=== PATIENT | male | born 1975 | race Two or more races ===

== ENCOUNTER 2024-01-07 18:17 | Emergency (ER) | payer MEDICAID, SELFPAY ==
--- NOTE | 2024-01-07 18:19 | PC.NURSE ---
WALKED OUT WHILE NURSE ATTEMPTING TO TRIAGE PT
== END 2024-01-07 19:29 | disposition left against medical advice (07) ==
DX: Z53.21 Procedure and treatment not carried out due to patient leaving prior to being seen by health care provider (principal)

== ENCOUNTER 2024-11-04 19:20 | Emergency (ER) | payer MEDICAID, SELFPAY ==
[2024-11-04 19:48] VITALS: BP 180/98; PULSE 93; RESP 18; TEMP 36.8; O2SAT 96; BMI 22.7
--- NOTE | 2024-11-04 19:54 | XR_ITS ---
Examination: Humerus 2 views left Technique: Humerus, AP lateral 2 views Date and time of exam: November 04, 20242000 hours INDICATIONS: Patient fell today with injury to the arm, arm pain FINDINGS: Old appearing bony density at the lateral humeral condyle No shoulder dislocation No acute fracture IMPRESSION: No acute fracture
--- NOTE | 2024-11-04 19:54 | EKG_ITS ---
[facility] (Formerly [facility])[3] Test Date: 2024-11-04 Pat Name: CYNDEE LENZ Department: Room: - Gender: Male Service Desk Analyst: : 1975 Requested By: Christos Mesa Order Number: [id number] Reading MD: Christos Mesa Measurements Intervals [place] Rate: 97 P: 49 IN: 137 QRS: 11 QRSD: 89 T: 56 QT: 357 QTc: 454 Interpretive Statements SINUS RHYTHM Compared to ECG 02/03/2022 02:18:15 Sinus tachycardia no longer present Atrial abnormality no longer present Left ventricular hypertrophy no longer present ST (T wave) deviation no longer present /store/S0/[id number].pdf
--- NOTE | 2024-11-04 19:54 | XR_ITS ---
Examination: PA chest single view TECHNIQUE: Upright PA chest single view Date and time: November 04, 2024 2001 hours INDICATIONS: Chest pain and shortness of breath today. FINDINGS: Normal heart size Lungs are clear. The osseous structures are intact. IMPRESSION: No active disease.
--- NOTE | 2024-11-04 19:55 | PD.EDRME ---
Rapid Medical Screening Exam RME Arrival date/time: 11/04/24 19:20 49M with history of HTN and alcohol/drug use presents to ED with 1 week of L arm pain after fall. Also, patient has had several days of CP and blurry vision. Patient drank alcohol earlier today. Chief Complaint: General Adult/Misc Complain Vital signs: Vital Signs Temperature 98.3 F 11/04/24 19:48 Pulse Rate 93 11/04/24 19:48 Respiratory Rate 18 11/04/24 19:48 Blood Pressure 180/98 H 11/04/24 19:48 Pulse Oximetry (%) 96 11/04/24 19:48 Oxygen Delivery Method Room Air 11/04/24 19:48
--- NOTE | 2024-11-04 20:17 | PC.NURSE ---
PT'S SISTER INFORMED ME THAT HE TOOK OFF ER.
== END 2024-11-04 20:18 | disposition left against medical advice (07) ==
PROVIDERS: Emergency Provider Emergency Medicine
DX: R07.9 Chest pain, unspecified (principal); R06.02 Shortness of breath; H53.8 Other visual disturbances; I10 Essential (primary) hypertension; W19.XXXA Unspecified fall, initial encounter; Z53.29 Procedure and treatment not carried out because of patient's decision for other reasons
CPT/HCPCS: 71045; 73060; 80053; 80307; 80320; 82140; 83735; 83880; 84484; 85025; 85610; 85730; 93005; 99283; G0480

== ENCOUNTER 2024-12-21 14:59 | Emergency (ER) | payer MEDICAID, SELFPAY ==
[2024-12-21] VITALS (8 sets, daily range): BP systolic 167–235; BP diastolic 97–131; PULSE 74–100; RESP 15–20; TEMP 36.6–37.1; O2SAT 95–99; BMI 26.4
--- NOTE | 2024-12-21 15:43 | EDNOTE_ITS ---
ED Medical Clearance RME/HPI General Chief complaint: Medical Clearance Stated complaint: MEDICAL CLEARANCE Time Seen by Provider: 12/21/24 15:10 Arrival date/time: 12/21/24 14:59 Limitations: no limitations RME / HPI RME / HPI Narrative: 49 year old male with history of hypertension with medication noncompliance, presents to the ED BIB [facility] for medical clearance today. Patient reports he has been noncompliant with medications for some time. States since arriving to the ED, he developed left sided chest pain. Described as aching in sensation with no radiation, rating as mild. No other associated symptoms reported. Denies fevers, chills, cough, shortness of breath, abdominal pain, n/v/d, or urinary symptoms. Patient admits to smoking tobacco and alcohol use. Last drank alcohol yesterday. Related Information Home Medications ?Medication ?Instructions ?Recorded ?Confirmed No Known Home Medications 05/13/2304/30 Allergies Allergy/AdvReac Type Severity Reaction Status Date / Time No Known Allergies Allergy Verified 11/04/24 19:32 Review of Systems Review of Systems Systems Reviewed: All systems reviewed, normal except as documented Past Medical History Past Medical History CARDIAC: Positive Hypertension Surgical History SURGICAL: Positive Abdominal Surgery Social History SMOKING STATUS: Never smoker SUBSTANCE USE: does not use ED Exam General Limitations: Present no limitations General appearance: Present alert and in no apparent distress Head Head exam: Present atraumatic Eye Eye exam: Present PERRL, EOMI and other (bilateral conjunctival hemorrhage ) ENT ENT exam: Present normal exam, normal oropharynx and mucous membranes moist Neck Neck exam: Present normal inspection, full ROM and trachea midline Chest Chest inspection: Present normal inspection and symmetric chest wall rise Respiratory Respiratory exam: Present normal lung sounds bilaterally Cardiovascular Cardiovascular exam: Present regular rate, normal rhythm and normal heart sounds Abdominal Exam Abdominal exam: Present soft and normal bowel sounds Extremities Exam Extremities exam: Present normal inspection and full ROM Back Exam Back exam: Present normal inspection and full ROM Neurological Exam Neurological exam: Present alert, oriented X3 and CN II-XII intact Psychiatric Psychiatric exam: Present normal affect and normal mood Skin Skin exam: Present warm, dry, intact and normal color Course Quality Measures none Orders Category Date Time Status EKG (ED ONLY) *Do not use* NOW Care 12/21/24 16:03 Completed EKG (ED Only) Stat Exams 12/21/24 16:03 Draft US renal BI Stat Exams 12/21/24 16:05 Completed BNP [B-Type Natriuretic Peptide] Stat Lab 12/21/24 16:32 Completed CBC Stat Lab 12/21/24 16:32 Completed CMP [Comprehensive Metabolic Panel] Stat Lab 12/21/24 16:32 Completed Troponin I Stat Lab 12/21/24 16:32 Completed UA, C/S IF [Urinalysis, C/S if Indicated] Stat Lab 12/21/24 18:15 Completed Aspirin Chew Med 12/21/24 16:03 Discontinued 162 mg PO X1 ONE Ringers Lactated 1000 ml [Lactated Ringers] 1,000 ml Med 12/21/24 18:16 Active IV 999 mls/hr hydrALAZINE INJ [Apresoline Inj] Med 12/21/24 15:59 Discontinued 15 mg IM X1 ONE Vital Signs Vital signs: Vital Signs Temperature 97.9 F 12/21/24 15:06 Pulse Rate 85 12/21/24 15:06 Respiratory Rate 19 12/21/24 15:06 Blood Pressure 235/126 H 12/21/24 15:06 Pulse Oximetry (%) 99 12/21/24 15:06 Oxygen Delivery Method Room Air 12/21/24 15:06 Pulse ox is 99% on room air which is adequate. Medical Clearance [facility] Narrative [facility] Narrative:: Lizzy Kendrick am scribing for and in the presence of Dr. Ramirez. 1800: Patient care signed out to Dr. Mora pending final diposition. Patient seen in the emergency department with hypertension and chest pain and left flank pain. Patient is pending medical clearance. Vital signs and exam as listed. Concern for ACS arrhythmia electrolyte abnormality metabolic disturbance, kidney stone among others. Ordered labs EKG chest x-ray. Patient signed out to oncoming provider pending results of his workup and safe dispo Patient data External records reviewed:: [facility] previous records Clinical information provided by:: patient and law enforcement Social determinants that could affect healthcare access:: alcohol use Patient has the following chronic illnesses:: Hypertension How is presenting disease/condition affected by chronic disease/condition?: exacerbated by Evaluation data The following diagnostics were reviewed and interpreted by me:: lab results and EKG tracing(s) Lab and/or radiology exams considered but not ordered:: None Interpretation Summary: See MDM Medications / Prescriptions Medications or Prescriptions considered but not ordered:: None Medication administrations:: Medication Administration History Lactated Ringer's (Lactated Ringers) 1,000 mls @ 999 mls/hr IV .Q1H1M ONE Stop: 12/21/24 19:16 Discontinued Medications Aspirin (Aspirin 81 Mg Chew) 162 mg PO X1 ONE Stop: 12/21/24 16:04 Last Admin: 12/21/24 16:48 Dose: 162 mg Documented By: EF Hydralazine HCl (Hydralazine Inj 20 Mg/Ml Vial) 15 mg IM X1 ONE Stop: 12/21/24 16:00 Last Admin: 12/21/24 16:48 Dose: 15 mg Documented By: EF See above Consultations Consultation(s) initiated? (list below): No Diagnosis Medical Clearance Differential Diagnosis: other (Hypertension, hypertensive emergency, hypertensive urgency ) Most likely diagnosis given after review of the tests above:: Symptomatic hypertension Admission Indicated Admission indicated?: not indicated Explain why admission is indicated or not indicated:: Signed out pending final disposition Admission Request Was there a request for admission?: No Disposition Plan Disposition Plan: other (specify) (Signed out to Dr. Mora ) Discharge Plan Prescriptions/Referrals Prescriptions/Med Rec: No Action No Known Home Medications Referrals: No Primary/Family,Physician [Primary Care Provider] - In 1 week Problem List Clinical Impression: Hypertension Patient/Caregiver Discharge Instructions Print Language: Romanian
--- NOTE | 2024-12-21 16:03 | EKG_ITS ---
[facility] Test Date: 2024-12-21 Pat Name: CYNDEE LENZ Department: Room: - Gender: Male Media Relations Coordinator: : 1975 Requested By: Temitope Vitale Order Number: [id number] Reading MD: Temitope Vitale Measurements Intervals [place] Rate: 87 P: 44 [place]: 153 QRS: 1 QRSD: 89 T: 41 QT: 376 QTc: 453 Interpretive Statements SINUS RHYTHM MODERATE VOLTAGE CRITERIA FOR LVH, CONSIDER NORMAL VARIANT [MEETS CRITERIA IN ONE OF: R(aVL), S(V1), R(V5), R(V5/V6)+S(V1)] Compared to ECG 11/04/2024 19:57:11 No significant changes /store/S0/[id number]/[id number].pdf
--- NOTE | 2024-12-21 16:05 | XR_ITS ---
Examination: Retroperitoneal ultrasound, complete Technique: Multiple high resolution grayscale images of the retroperitoneum obtained, including kidneys and bladder. Exam date and time:December 21, 2024, 1801 hrs. Indications: Left flank pain beginning one week ago Findings: Right kidney 13.7 cm cortex 1.4 cm Left kidney 10.1 cm cortex 1.6 cm Moderate bilateral renal parenchymal scar formation Duplicated right renal collecting system Contracted urinary bladder No prostatomegaly no prostate nodules Impression: Bilateral renal cortical thinning Moderate bilateral renal parenchymal scar formation
[2024-12-21] MEDS: hydrALAZINE INJ 20 MG/ML VIAL 15 MG IM (16:48)
[2024-12-21] MEDS: ASPIRIN 81 MG CHEW 162 MG PO (16:48)
[2024-12-21 16:59] LABS: Basophils # (Auto) 0.1 Thou/mm3 (0.0-0.2); Basophils % (Auto) 1 % (0-2.5); Eosinophils # (Auto) 0.1 Thou/mm3 (0.0-0.5); Eosinophils % (Auto) 1 % (0-10); Hematocrit 38.2 % (41.0-53.0); Hemoglobin 13.0 g/dL (13.5-16.0); Immature Granulocytes Auto 0.02 Thou/mm3 (0.00-0.00); Lymphocytes # (Auto) 2.0 Thou/mm3 (1.0-4.8); Lymphocytes % (Auto) 26 % (10-50); Mean Corpuscular HGB Conc 34.0 g/dl (31.0-37.0); Mean Corpuscular Hemoglobin 33.2 pg (25.0-35.0); Mean Corpuscular Volume 98 fL (80-100); Monocytes # (Auto) 0.6 Thou/mm3 (0.0-0.8); Monocytes % (Auto) 8 % (0-12); Neutrophils # (Auto) 4.8 Thou/mm3 (1.8-7.7); Neutrophils % (Auto) 63 % (37-80); Nucleated Red Blood Cell # 0.00 Thou/mm3 (0.00-0.00); Nucleated Red Blood Cell % 0 /100 WBC (0); Platelet Count 211 Thou/mm3 (140-440); RDW Standard Deviation 52.7 fL (35.1-43.9); Red Blood Count 3.91 Miln/mm3 (4.50-5.90); White Blood Count 7.5 Thou/mm3 (3.8-10.6)
[2024-12-21 17:20] LABS: B-Type Natriuretic Peptide 77 pg/mL (0-100)
[2024-12-21 17:22] LABS: Alanine Aminotransferase 90 U/L (10-49); Albumin, Serum 4.8 gm/dL (3.5-5.0); Albumin/Globulin Ratio 1.5 (1.2-2.2); Alkaline Phosphatase 281 U/L (46-116); Anion Gap 9 (7-16); Aspartate Amino Transferase 142 U/L (0-34); BUN/Creatinine Ratio 13 Ratio (12-20); Bilirubin,Total 1.3 mg/dL (0.3-1.2); Blood Urea Nitrogen 22 mg/dL (9-23); Calcium 9.9 mg/dL (8.3-10.6); Calcium (Corrected) 9.9 mg/dL (8.5-10.1); Carbon Dioxide 24.0 mMol/L (20.0-31.0); Chloride 109 mMol/L (98-107); Creatinine (Component) 1.7 mg/dL (0.6-1.3); Estimated Creatinine Clearance 58.1 mL/min (>60); Globulin 3.1 gm/dL (2.3-3.5); Glucose 93 mg/dL (74-106); Osmolality,Calculated 286 (275-295); Potassium 4.5 mMol/L (3.4-5.1); Sodium 142 mMol/L (136-145); Total Protein 7.9 gm/dL (5.7-8.2); Troponin I < 0.020 ng/mL (0.0-0.045); eGFR 48 See Note
[2024-12-21 18:50] LABS: Collection Type, Urine Clean Catch; Squamous Epithelial Cell,Urine 0 /hpf (0-5)
[2024-12-21 18:55] LABS: Bilirubin,Urine Negative (Negative); Blood,Urine Trace (Negative); Clarity,Urine Clear (Clear/Hazy); Color,Urine Yellow (Lt Yel-Yel); Culture Indicated,Urine Not Indicated; Glucose, Urine Trace (Negative); Hyaline Casts,Urine 1 /hpf (0-1); Ketones,Urine Negative (Negative); Leukocyte Esterase,Urine Negative (Negative); Nitrite,Urine Negative (Negative); PH,Urine 6.0 (5.0-7.0); Protein,Urine 1+ (Neg - Trace); RBC,Urine 7 /hpf (0-3); Specific Gravity,Urine 1.028 (1.001-1.035); Urobilinogen,Urine Negative mg/dL (0.0-1.0); WBC,Urine 1 /hpf (0-5)
[2024-12-21] MEDS: RINGERS LACTATED 1000 ML 1,000 ML 999 ML IV (19:06)
--- NOTE | 2024-12-21 19:17 | EDNOTE_ITS ---
Emergency Room Addendum <Tanya Smith - Last Filed: 12/21/24 19:17> Addendum Narrative: 1800: Care assumed from Dr. Ramirez (emergency physician). Past medical, surgical, social and family history reviewed. Vitals and home medications reviewed. Results and treatment plan discussed. I will assume the care of the patient at this time and will follow the patient, pending dishcarge to detention following stabilization of blood pressure. The following addendum documentation note is intended to reflect any pending information, findings, or radiology results not included in the patient?s initial chart by the previous shift scribe. <Aaron Mustafa MoraDO - Last Filed: 12/21/24 20:33> Addendum Narrative: 1800: Care assumed from Dr. Ramirez (emergency physician). Past medical, surgical, social and family history reviewed. Vitals and home medications reviewed. Results and treatment plan discussed. I will assume the care of the patient at this time and will follow the patient, pending dishcarge to detention following stabilization of blood pressure. The following addendum documentation note is intended to reflect any pending information, findings, or radiology results not included in the patient?s initial chart by the previous shift scribe. Patient was signed out to me pending treatment of severe hypertension to get medical clearance to go to detention. Patient has a longstanding history of hypertension but does not take medication for it. Patient received hydralazine 20 mg IV with little effect on blood pressure. He then received labetalol 40 mg IV which brought his blood pressure down to 167/97. Patient will be discharged in stable condition. The recommendation is to take Norvasc 10 mg once a day. Patient is medically clear for detention facility.
[2024-12-21] MEDS: hydrALAZINE INJ 20 MG/ML VIAL IVP (19:25)
[2024-12-21] MEDS: LABETALOL INJ 5 MG/ML VIAL 20 ML 40 MG IVP (19:57)
== END 2024-12-21 20:49 | disposition admitted as inpatient to this hospital (09) ==
LOC: SERX 15:14
PROVIDERS: Emergency Provider Emergency Medicine
DX: Z02.89 Encounter for other administrative examinations (principal); I10 Essential (primary) hypertension; Z91.148 Patient's other noncompliance with medication regimen for other reason; F17.200 Nicotine dependence, unspecified, uncomplicated
CPT/HCPCS: 36415; 76770; 80053; 81001; 83880; 84484; 85025; 93005; 96361; 96372; 96374; 96375; 99283; J0360; J3490; J7120; A9270; J1920

== ENCOUNTER 2025-01-12 21:02 | Emergency (ER) | payer MEDICAID, SELFPAY ==
[2025-01-12 21:04] VITALS: BP 202/106; PULSE 79; RESP 18; TEMP 36.7; O2SAT 99; BMI 25.0
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
--- NOTE | 2025-01-12 21:36 | PD.EDHIP ---
Lower Extremity Injury RME/HPI General Chief Complaint: Hip Injury/Pain Stated Complaint: FALL R HIP PAIN Time Seen by Provider: 01/12/25 21:21 Arrival date/time: 01/12/25 21:02 49M with history of HTN (non-adherent) and drug/alcohol use presents to ED with R hip pain after fall. Limitations: no limitations Related Data Home Medications ?Medication ?Instructions ?Recorded ?Confirmed No Known Home Medications 05/13/23 05/13/23 Allergies Allergy/AdvReac Type Severity Reaction Status Date / Time No Known Allergies Allergy Verified 01/12/25 21:08 Review of Systems Review of Systems Systems Reviewed: All systems reviewed, normal except as documented Musculoskeletal Musculoskeletal: Reports as per HPI and Reports arthralgias Past Medical History Past Medical History NEUROLOGIC: Negative Seizures CARDIAC: Positive Hypertension; Negative Cardiac Disorders or Congestive Heart Failure RESPIRATORY: Negative Chronic Obstructive Pulmonary Disease (COPD) or Asthma GENITOURINARY: Negative Renal Disease ENDOCRINE: Negative Diabetes Mellitus Type 1 or Diabetes Mellitus Type 2 HEMATOLOGIC: Negative Sickle Cell Disease OTHER HISTORY: Negative Blood Transfusions or Anesthesia Reactions Surgical History SURGICAL: Positive Abdominal Surgery Social History SMOKING STATUS: Never smoker SUBSTANCE USE: does not use ED Exam General Limitations: Present no limitations General appearance: Present alert and in no apparent distress Head Head exam: Present atraumatic Neck Neck exam: Present normal inspection, full ROM and trachea midline Chest Chest inspection: Present normal inspection and symmetric chest wall rise Extremities Exam Extremities exam: Present full ROM Expanded Lower Extremity Exam Hip/Pelvis exam: Present full ROM (R) and tenderness Neurological Exam Neurological exam: Present alert and oriented X3 Psychiatric Psychiatric exam: Present normal affect and normal mood Skin Skin exam: Present warm, dry, intact and normal color Course Quality Measures none Orders Category Date Time Status XR hip RT w pelvis 2-3V Stat Exams 01/12/25 21:22 Completed HYDROcodone*/APAP 5/325 [[employer] 5/325] Med 01/12/25 21:22 Discontinued 1 tab PO X1 ONE Vital Signs Vital signs: Vital Signs Temperature 98.1 F 01/12/25 21:04 Pulse Rate 79 01/12/25 21:04 Respiratory Rate 18 01/12/25 21:04 Blood Pressure 202/106 H 01/12/25 21:04 Pulse Oximetry (%) 99 01/12/25 21:04 Oxygen Delivery Method Room Air 01/12/25 21:04 O2 at 99% on RA and WNLs Extremity Injury, Lower MDM Narrative MDM Narrative:: 49M with history of HTN (non-adherent) and drug/alcohol use presents to ED with R hip pain after fall. Physical exam reveals R hip tenderness. Gait mild limp. Patient is able to bear weight on it. Patient is afebrile, calm, and alert. Patient declines crutches. XR no fx. Given meds and certified alcohol counselor, including to take BP meds. Patient data External records reviewed:: [facility] previous records Clinical information provided by:: patient Social determinants that could affect healthcare access:: alcohol use Patient has the following chronic illnesses:: HTN How is presenting disease/condition affected by chronic disease/condition?: uneffected by Evaluation data The following diagnostics were reviewed and interpreted by me:: radiology exam(s) Lab and/or radiology exams considered but not ordered:: ordered Interpretation Summary: above Medications / Prescriptions Medications or Prescriptions considered but not ordered:: ordered Medication administrations:: Medication Administration History Discontinued Medications Hydrocodone Bitart/Acetaminophen (Hydrocodone/Apap 5/325 Tablet) 1 tab PO X1 ONE Stop: 01/12/25 21:23 Last Admin: 01/12/25 21:53 Dose: 1 tab Documented By: RC above Consultations Consultation(s) initiated? (list below): No Diagnosis Extremity Injury, Lower Differential Diagnosis: acute internal derangement of knee, fracture of femur, fracture of hip and other (hip contusion, HTN) Most likely diagnosis given after review of the tests above:: HTN and hip contusion Admission Indicated Admission indicated?: not indicated Admission Request Was there a request for admission?: No Disposition Plan Disposition Plan: Discharge Discharge Attestation Discharge Attestation: The patient and all family members were given an opportunity to ask questions and understood the discharge instructions. Discharge instructions specifically effects, indications for sooner follow up or return to the emergency department, and the expected course of current diagnosis. Patient condition: Stable Discharge Plan Plan Patient Disposition: HOME (Self Care) Discharge Disposition comment: Stable Prescriptions/Referrals Prescriptions/Med Rec: No Action No Known Home Medications Referrals: Geoffrey Strong MD [Primary Care Provider, Family Practice] - In 1 week Problem List Clinical Impression: Hypertension, Contusion of hip Patient/Caregiver Discharge Instructions Education Materials: Hypertension Dc, ED Hip Contusion Additional Instructions: Please follow-up with PCP within 24-48 hours and return immediately if symptoms worsen. Take your HTN meds. Print Language: [place] Stand Alone Forms: Patient Portal Info Letter PA/HUMAN RESOURCES PROJECT COORDINATOR Supervising Physician PA/HUMAN RESOURCES PROJECT COORDINATOR Supervising Physician: Dr. Mora
[2025-01-12] MEDS: HYDROcodone/APAP 5/325 TABLET 1 TAB PO (21:53)
== END 2025-01-12 22:30 | disposition home or self-care (01) ==
PROVIDERS: Emergency Provider Emergency Medicine; PCP Family Medicine
DX: S70.01XA Contusion of right hip, initial encounter (principal); I10 Essential (primary) hypertension; W19.XXXA Unspecified fall, initial encounter
CPT/HCPCS: 73502; 99283; A9270